=== PATIENT | female | born 1940 | race Caucasian/White ===

== ENCOUNTER → 2017-02-10 | Outpatient (CLI) | payer MEDICARE, OTHER | LOC: KOH-I 14:49 | DX: M25.511 Pain in right shoulder (principal); S46.011A Strain of muscle(s) and tendon(s) of the rotator cuff of right shoulder, initial encounter; M19.011 Primary osteoarthritis, right shoulder | CPT/HCPCS: 73221 ==

== ENCOUNTER 2021-04-05 13:57 | Inpatient (IN) | payer MEDICARE, OTHER ==
[~2021-04-05] VITALS: Ht 162.6 cm; Wt 73.9 kg
[~2021-04-05 13:57] MED LIST: ANCEF 1 GM IV AD1 GM IV; EFFER-K 20 MEQ20 MEQ PO; FLONASE ALLER15.8 ML; K-DUR TAB 20 M20 MEQ PO; LOPRESSOR50 MG PO; NORVASC 5 MG TAB5 MG PO; TYLENOL 325MG325 MG PO; ULTRAM50 MG PO; VITAMIN D32000 UNI1 PO; ZANTAC 150 MG150 MG PO; ZYRTEC10 MG PO
[2021-04-05 15:02] LABS: HEMOGLOBIN 12.1 gm/dl (12.3-15.3); RED BLOOD COUNT 4.94 M/UL (4.00-5.10); WHITE BLOOD COUNT 14.7 K/UL (4.5-11.0)
[2021-04-05 15:24] LABS: BUN/CREATININE RATIO 25 (0-10)
[2021-04-05] MEDS ORDERED: NORVASC5 MG PO (18:42)
[2021-04-05] MEDS ORDERED: ELIQUIS5 MG PO (18:42)
[2021-04-05] MEDS ORDERED: ATORVASTATIN CA40 MG PO (18:43)
[2021-04-05] MEDS ORDERED: VITAMIN D 40400 UNIT PO (18:44)
[2021-04-05] MEDS ORDERED: FERROUS SULFAT325 MG PO (18:44)
[2021-04-05] MEDS ORDERED: METFORMIN HCL500 MG PO (18:46)
[2021-04-06 07:23] LABS: HEMOGLOBIN 11.2 gm/dl (12.3-15.3); RED BLOOD COUNT 4.52 M/UL (4.00-5.10)
[2021-04-06 07:26] LABS: WHITE BLOOD COUNT 10.5 K/UL (4.5-11.0)
[2021-04-06 07:38] LABS: BUN/CREATININE RATIO 23 (0-10)
[2021-04-06] MEDS ORDERED: SYNTHROID88 MCG PO (18:36)
[2021-04-06] MEDS ORDERED: LOPRESSOR 50 MG50 MG PO (18:45)
[2021-04-07 06:49] LABS: HEMOGLOBIN 11.3 gm/dl (12.3-15.3); RED BLOOD COUNT 4.54 M/UL (4.00-5.10); WHITE BLOOD COUNT 9.8 K/UL (4.5-11.0)
[2021-04-07 07:21] LABS: BUN/CREATININE RATIO 20 (0-10)
[2021-04-07 14:10] LABS: HEMOGLOBIN 11.6 gm/dl (12.3-15.3); RED BLOOD COUNT 4.59 M/UL (4.00-5.10)
[2021-04-07 14:13] LABS: WHITE BLOOD COUNT 17.2 K/UL (4.5-11.0)
[2021-04-07 14:29] LABS: BUN/CREATININE RATIO 16 (0-10)
[2021-04-08 04:17] LABS: HEMOGLOBIN 9.7 gm/dl (12.3-15.3); RED BLOOD COUNT 3.85 M/UL (4.00-5.10); WHITE BLOOD COUNT 13.3 K/UL (4.5-11.0)
[2021-04-08 04:46] LABS: BUN/CREATININE RATIO 20 (0-10)
[2021-04-09 06:58] LABS: HEMOGLOBIN 8.8 gm/dl (12.3-15.3); RED BLOOD COUNT 3.7 M/UL (4.00-5.10); WHITE BLOOD COUNT 11.4 K/UL (4.5-11.0)
[2021-04-09 07:08] LABS: BUN/CREATININE RATIO 22 (0-10)
[2021-04-10 08:56] LABS: WHITE BLOOD COUNT 11.1 K/UL (4.5-11.0)
[2021-04-10 08:58] LABS: HEMOGLOBIN 10.9 gm/dl (12.3-15.3); RED BLOOD COUNT 4.17 M/UL (4.00-5.10)
[2021-04-10 09:19] LABS: BUN/CREATININE RATIO 18 (0-10)
[2021-04-11 06:27] LABS: HEMOGLOBIN 10.3 gm/dl (12.3-15.3); RED BLOOD COUNT 4.05 M/UL (4.00-5.10); WHITE BLOOD COUNT 11.1 K/UL (4.5-11.0)
[2021-04-11 06:58] LABS: BUN/CREATININE RATIO 19 (0-10)
[2021-04-12 04:06] LABS: HEMOGLOBIN 9.5 gm/dl (12.3-15.3); RED BLOOD COUNT 3.72 M/UL (4.00-5.10); WHITE BLOOD COUNT 11.2 K/UL (4.5-11.0)
[2021-04-12 04:24] LABS: BUN/CREATININE RATIO 25 (0-10)
[2021-04-13 09:56] LABS: HEMOGLOBIN 10.1 gm/dl (12.3-15.3); RED BLOOD COUNT 3.95 M/UL (4.00-5.10); WHITE BLOOD COUNT 11.8 K/UL (4.5-11.0)
[2021-04-13 10:15] LABS: BUN/CREATININE RATIO 24 (0-10)
[2021-04-14 10:22] LABS: HEMOGLOBIN 11.5 gm/dl (12.3-15.3)
[2021-04-14 10:23] LABS: RED BLOOD COUNT 4.44 M/UL (4.00-5.10); WHITE BLOOD COUNT 18.2 K/UL (4.5-11.0)
[2021-04-14 10:46] LABS: BUN/CREATININE RATIO 18 (0-10)
[2021-04-14] MEDS ORDERED: CEFUROXIME250 MG PO (13:34)
[2021-04-14] MEDS ORDERED: ULTRAM50 MG PO (15:34)
--- NOTE | 2021-04-14 18:34 | NUR ---
CALLED REPORT TO [place] AT 18:34
== END 2021-04-14 22:02 | DRG 522 ==
LOC: ER1 13:57 → M/S 16:21 → CDU 16:21 → M/S 18:06
PROVIDERS: Emergency Medicine; Internal Medicine; Orthopaedic Surgery; Physician Assistant Medical; ADMIT Internal Medicine
PROC: B24BZZ4 Ultrasonography of Heart with Aorta, Transesophageal (ICD-10-PCS; 2021-04-05)
PROC: 0SRS0J9 Replacement of Left Hip Joint, Femoral Surface with Synthetic Substitute, Cemented, Open Approach (ICD-10-PCS; principal; 2021-04-07 11:00)
PROC: 30233N1 Transfusion of Nonautologous Red Blood Cells into Peripheral Vein, Percutaneous Approach (ICD-10-PCS; 2021-04-09)
DX: S72.012A Unspecified intracapsular fracture of left femur, initial encounter for closed fracture (principal); D62 Acute posthemorrhagic anemia; N39.0 Urinary tract infection, site not specified; Z20.822 Contact with and (suspected) exposure to COVID-19; W08.XXXA Fall from other furniture, initial encounter; I48.0 Paroxysmal atrial fibrillation; E78.5 Hyperlipidemia, unspecified; E11.9 Type 2 diabetes mellitus without complications; I07.1 Rheumatic tricuspid insufficiency; I10 Essential (primary) hypertension; D47.3 Essential (hemorrhagic) thrombocythemia; Z86.73 Personal history of transient ischemic attack (TIA), and cerebral infarction without residual deficits; Z90.49 Acquired absence of other specified parts of digestive tract; Z90.710 Acquired absence of both cervix and uterus; Z79.01 Long term (current) use of anticoagulants; Z98.42 Cataract extraction status, left eye; Z98.41 Cataract extraction status, right eye; Z88.8 Allergy status to other drugs, medicaments and biological substances; Z82.49 Family history of ischemic heart disease and other diseases of the circulatory system; Z83.3 Family history of diabetes mellitus; Z80.9 Family history of malignant neoplasm, unspecified; Z82.3 Family history of stroke; Z79.4 Long term (current) use of insulin
CPT/HCPCS: ECHO; 36415; 36430; 70450; 71045; 72170; 73502; 73552; 73700; 80048; 80053; 81001; 82962; 83036; 83735; 85025; 85027; 86850; 86900; 86901; 86920; 93005; 93306; 96374; 96375; 97110; 97110-GP-CQ; 97116-GP-CQ; 97162; 97165; 97530-GP-CQ; 97535; 99285; C1713; C1776; J0690; J1100; J2001; J2270; J2405; J2704; J2710; J2795; J3010; J3370; J7120; P9016; U0002

== ENCOUNTER 2021-05-31 12:36 | Emergency (ER) | payer MEDICARE, OTHER ==
[~2021-05-31] VITALS: Ht 162.6 cm; Wt 74.8 kg
[~2021-05-31 12:36] MED LIST changes: +ATORVASTATIN CA40 MG PO; +CEFUROXIME250 MG PO; +ELIQUIS5 MG PO; +FERROUS SULFAT325 MG PO; +LOPRESSOR 50 MG50 MG PO; +METFORMIN HCL500 MG PO; +NORVASC5 MG PO; +SYNTHROID88 MCG PO; +VITAMIN D 40400 UNIT PO
== END 2021-05-31 15:30 | disposition home or self-care (01) ==
LOC: ER1 12:36
DX: U07.1 COVID-19 (principal); Z23 Encounter for immunization; I10 Essential (primary) hypertension; Z90.49 Acquired absence of other specified parts of digestive tract; Z88.5 Allergy status to narcotic agent; Z79.01 Long term (current) use of anticoagulants; Z88.8 Allergy status to other drugs, medicaments and biological substances
CPT/HCPCS: 99283; M0243

== ENCOUNTER 2021-05-31 20:49 | Inpatient (IN) | payer MEDICARE, OTHER ==
[~2021-05-31] VITALS: Ht 162.6 cm; Wt 74.8 kg
[2021-05-31 21:30] LABS: HEMOGLOBIN 11.9 gm/dl (12.3-15.3); RED BLOOD COUNT 4.6 M/UL (4.00-5.10); WHITE BLOOD COUNT 8.4 K/UL (4.5-11.0)
[2021-05-31 21:43] LABS: BUN/CREATININE RATIO 24 (0-10)
[2021-06-01 04:47] LABS: HEMOGLOBIN 11.3 gm/dl (12.3-15.3); RED BLOOD COUNT 4.39 M/UL (4.00-5.10)
[2021-06-01 04:49] LABS: WHITE BLOOD COUNT 6.2 K/UL (4.5-11.0)
[2021-06-01 06:39] LABS: BUN/CREATININE RATIO 21 (0-10)
[2021-06-02 07:48] LABS: HEMOGLOBIN 11.1 gm/dl (12.3-15.3); RED BLOOD COUNT 4.43 M/UL (4.00-5.10); WHITE BLOOD COUNT 7.9 K/UL (4.5-11.0)
[2021-06-02 08:21] LABS: BUN/CREATININE RATIO 25 (0-10)
== END 2021-06-05 13:10 | disposition home or self-care (01) | DRG 177 ==
LOC: ER1 20:49 → CDU 22:38 → M/S 22:38
PROVIDERS: Internal Medicine; Physician Assistant; ADMIT Internal Medicine
PROC: XW033E5 Introduction of Remdesivir Anti-infective into Peripheral Vein, Percutaneous Approach, New Technology Group 5 (ICD-10-PCS; 2021-05-31)
PROC: 3E0333Z Introduction of Anti-inflammatory into Peripheral Vein, Percutaneous Approach (ICD-10-PCS; 2021-05-31)
PROC: 8E0ZXY6 Isolation (ICD-10-PCS; principal; 2021-06-01)
DX: U07.1 COVID-19 (principal); J12.82 Pneumonia due to coronavirus disease 2019; J96.01 Acute respiratory failure with hypoxia; I48.0 Paroxysmal atrial fibrillation; D69.6 Thrombocytopenia, unspecified; D64.9 Anemia, unspecified; E87.6 Hypokalemia; I10 Essential (primary) hypertension; I95.9 Hypotension, unspecified; E83.42 Hypomagnesemia; K86.89 Other specified diseases of pancreas; E78.5 Hyperlipidemia, unspecified; Z79.01 Long term (current) use of anticoagulants; Z86.73 Personal history of transient ischemic attack (TIA), and cerebral infarction without residual deficits; Z82.49 Family history of ischemic heart disease and other diseases of the circulatory system; Z98.42 Cataract extraction status, left eye; Z98.41 Cataract extraction status, right eye; Z90.710 Acquired absence of both cervix and uterus; Z88.8 Allergy status to other drugs, medicaments and biological substances; Z88.6 Allergy status to analgesic agent
CPT/HCPCS: 36415; 36600; 71045; 80053; 81001; 82803; 83540; 83550; 83605; 83735; 83880; 84100; 84132; 85025; 85027; 85652; 86140; 87040; 93005; 94640; 94664; 94760; 97116-GP-CQ; 97162; 97530; 97530-GP-CQ; 99283; 99285; J1100; J7030; M0243; Q9967

== ENCOUNTER → 2021-07-27 | Outpatient (CLI) | payer MEDICARE, OTHER | LOC: CT 10:00 | DX: K86.89 Other specified diseases of pancreas (principal) | CPT/HCPCS: Q9967 ==

== ENCOUNTER → 2021-10-26 | Outpatient (CLI) | payer MEDICARE, OTHER | LOC: CT 12:44 | DX: K86.89 Other specified diseases of pancreas (principal); R97.8 Other abnormal tumor markers | CPT/HCPCS: 36415; 82565; Q9967 ==

== ENCOUNTER → 2022-05-05 | Outpatient (CLI) | payer OTHER ==
[2022-05-05 12:45] LABS: RED BLOOD COUNT 5.05 M/UL (4.00-5.10); WHITE BLOOD COUNT 8.7 K/UL (4.5-11.0)
[2022-05-05 13:13] LABS: BUN/CREATININE RATIO 26 (0-10)
== END ==
LOC: CT 12:02
PROVIDERS: Internal Medicine Hematology & Oncology
DX: K86.89 Other specified diseases of pancreas (principal); R97.8 Other abnormal tumor markers
CPT/HCPCS: 36415; 80053; 85025; Q9967